=== PATIENT | male | born 2000 | race Caucasian/White ===

== ENCOUNTER 2023-07-28 14:19 | Emergency (ER) | payer OTHER, SELFPAY ==
[2023-07-28 14:20] VITALS: BP 125/65; PULSE 53; RESP 14; TEMP 36.8; O2SAT 99; BMI 24.4
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
== END 2023-07-28 15:31 | disposition home or self-care (01) ==
PROVIDERS: Emergency Provider Emergency Medicine
DX: S00.83XA Contusion of other part of head, initial encounter (principal); W22.8XXA Striking against or struck by other objects, initial encounter
CPT/HCPCS: 70450; 70486; 99284